=== PATIENT | female | born 1985 | race Caucasian/White ===

== ENCOUNTER 2016-09-23 04:58 | Emergency (ER) | payer MEDICAID ==
[2016-09-23 05:23] VITALS: TEMP 98.3; BMI 45.7
[2016-09-23] MEDS ORDERED: Lidocaine 2%-Epinephrine 1:100,000 20ml vial INF ONE (05:38)
--- NOTE | 2016-09-23 07:13 | EDPRACDOC ---
- General Information Chief Complaint: Wound Stated Complaint: ABSCESS Time Seen by Provider: 09/23/16 05:34 Information Source: Patient Mode of Arrival:: Car Home Medications: Home Medications TOPIRAMATE (Anticonvulsant) [Topamax] 50 mg PO BID 09/06/13 Loratadine [Claritin] 10 mg PO DAILY 01/24/15 Metformin HCl 1,000 mg PO BID 09/21/15 Albuterol Sulfate [Proair Hfa] 2 puff INH Q4H PRN 09/29/15 Montelukast Sodium [Singulair] 10 mg PO DAILY 09/29/15 Omeprazole 40 mg PO DAILY 05/21/16 Albuterol Sulfate Nebs [Proventil, Ventolin] 3 ml INH QID #1 box 06/05/16 Benzonatate [Tessalon Perle] 100 mg PO TID #21 capsule 06/05/16 Ibuprofen Tablet [Motrin] 800 mg PO QID #30 tab 06/05/16 Methylprednisolone [Medrol] 4 mg PO DAILY #1 tab.ds.pk 06/05/16 Clindamycin HCl 300 mg PO TID #12 capsule 09/23/16 Oxycodone Immediate Release [Oxycodone Immediate Release (OxyIR)] 5 - 15 mg PO Q4H PRN #30 tab 09/23/16 Allergies/Adverse Reactions: Allergies Allergy/AdvReac Type Severity Reaction Status Date / Time peanut Allergy Severe Angioedema* Verified 09/23/16 05:23 ketorolac tromethamine Allergy Intermediate Itching Verified 09/23/16 05:23 [From Toradol] tramadol Allergy Intermediate Nausea/Vomi Verified 09/23/16 05:23 ting PECANS Allergy Anaphylaxis Uncoded 06/05/16 13:13 * walnuts Allergy Angioedema* Uncoded 06/05/16 13:13 - History of Present Illness Onset: 1 week Location: Reports: Back Last Tetanus: Yes Relevent History Of: Reports: None Prior Abscess: Reports: None Pain: Reports: Moderate Quality: Reports: Painful, Red. Denies: Draining Associated Signs & Symptoms: Denies: Chills, Fever, Proximal Streaking ED Past Medical History - History Reviewed Yes Nurses notes reviewed and agree except as marked - Patient Medical History Neurological History: Reports: Migraine Cardiac History: Denies: Hypertension Respiratory History: Reports: Asthma, Chronic Bronchitis GI/ History: Reports: Urinary Tract Infection, Gastroesophageal Reflux Musculoskeletal History: Psychological History: Denies: Depression Systemic History: Reports: Diabetes. Denies: Cancer Surgical History: Reports: Cholecystectomy, Other (LIPOMA REMOVAL). Denies: Hysterectomy - Family Medical History Reports: Hypertension (mother), Diabetes (mother), Cardiac Disorders (father). Denies: Cancer, Stroke - Social Medical History Smoking Status: Never smoker EDM Review of Systems - Review of Systems ROS Negative Except as Marked: Yes All systems reviewed and were negative except as marked - Physical Exam Constitutional: No apparent distress, Alert, Distress (UNCOMFORTABLE WITH PAIN) Last recorded Vital Signs: Last Vital Signs Temp 98.3 F 09/23/16 05:17 Pulse 118 09/23/16 05:17 Resp 18 09/23/16 05:17 BP 159/85 09/23/16 05:17 Pulse Ox 100 09/23/16 05:17 Oxygen Pulse Oxygen Saturation 100 O2 Device Room Air Oxygen Flow Rate Fraction of Inspired Oxygen ( FIO2) - HEENT Head: Normal - Musculoskeletal Back: Other (RIGHT THORACIC PARASPINAL AREA DEMONSTRATES A 5 X 7 CM AREA WARRANTED INDURATION ERYTHEMA FIRM TENDER PALPATION NO CREPITANCE.. ULTRASOUND AREA OF THIS ABSCESS DEMONSTRATES A LARGE FLUID-FILLED CAVITY WITH SOME DEBRIS INSIDE) ED Procedures - Incision and Drainage Informed of risks, benefits and alternatives described.: Yes Informed Consent Signed: Verbal Indication: Painful Mass Anesthetic: Lidocaine, with Epi Prep: Betadine Blade Size: 11 Incised Site drained: Reports: Pus, Other (SEBUM) Incised site was: Not irrigated, Not Packed with Iodoform - Departure Disposition: Home Condition: Stable Final Diagnosis: Infected sebaceous cyst of skin Instructions: Incision and Drainage of Abscess Education/Counseling Given To: Patient Education/Counseling Given Regarding: Diagnosis, Treatment, Prognosis Prescriptions: Clindamycin HCl 300 mg PO TID #12 capsule Oxycodone Immediate Release [Oxycodone Immediate Release (OxyIR)] 5 - 15 mg PO Q4H PRN #30 tab PRN Reason: Pain
[2016-09-23 08:09] VITALS: BP 164/107; PULSE 95
== END 2016-09-23 08:02 | disposition home or self-care (01) ==
LOC: ED 04:58
DX: L72.3 Sebaceous cyst (principal)
CPT/HCPCS: 10060; 99283; J3490

== ENCOUNTER 2016-10-03 02:49 | Emergency (ER) | payer MEDICAID ==
[2016-10-03 02:56] VITALS: BP 187/92; PULSE 106; TEMP 98.3; BMI 45.9
[2016-10-03] MEDS ORDERED: OXYCODONE HCL 5 MG TABLET PO STA (04:36)
--- NOTE | 2016-10-03 04:38 | EDPRACDOC ---
- General Information Chief Complaint: Wound Stated Complaint: ABCESS ON BACK Time Seen by Provider: 10/03/16 04:26 Information Source: Patient Mode Of Arrival: Car Home Medications: Home Medications TOPIRAMATE (Anticonvulsant) [Topamax] 50 mg PO BID 09/06/13 Loratadine [Claritin] 10 mg PO DAILY 01/24/15 Metformin HCl 1,000 mg PO BID 09/21/15 Albuterol Sulfate [Proair Hfa] 2 puff INH Q4H PRN 09/29/15 Montelukast Sodium [Singulair] 10 mg PO DAILY 09/29/15 Omeprazole 40 mg PO DAILY 05/21/16 Clindamycin HCl 300 mg PO TID #12 capsule 09/23/16 Oxycodone Immediate Release [Oxycodone Immediate Release (OxyIR)] 5 - 15 mg PO Q4H PRN #30 tab 09/23/16 Oxycodone HCl [Roxicodone] 5 mg PO Q4-6H PRN #15 tablet 10/03/16 Allergies/Adverse Reactions: Allergies Allergy/AdvReac Type Severity Reaction Status Date / Time peanut Allergy Severe Angioedema* Verified 10/03/16 02:56 ketorolac tromethamine Allergy Intermediate Itching Verified 10/03/16 02:56 [From Toradol] tramadol Allergy Intermediate Nausea/Vomi Verified 10/03/16 02:56 ting PECANS Allergy Anaphylaxis Uncoded 10/03/16 02:56 * walnuts Allergy Angioedema* Uncoded 10/03/16 02:56 - History of Present Illness Onset: 2 WEEKS Wound Location: RIGHT UPPER BACK Previously Treated In: [place] [facility] Current Wound Treatment: Other (I&D) Associated Signs and Symptoms: Pain, Local Redness. negative: Fever, Red Streaking Other History: PT PRESENTS AFTER I&D OF ABSCESS TO RIGHT UPPER BACK EARLIER IN THE WEEK. STILL WITH PAIN. OUT OF PAIN MEDS AND ANTIBIOTICS. ED Past Medical History - History Reviewed Yes Nurses notes reviewed and agree except as marked - Patient Medical History Neurological History: Reports: Migraine Cardiac History: Denies: Hypertension Respiratory History: Reports: Asthma, Chronic Bronchitis GI/ History: Reports: Urinary Tract Infection, Gastroesophageal Reflux Musculoskeletal History: Psychological History: Denies: Depression Systemic History: Reports: Diabetes. Denies: Cancer Surgical History: Reports: Cholecystectomy, Other (LIPOMA REMOVAL). Denies: Hysterectomy - Family Medical History Reports: Hypertension (mother), Diabetes (mother), Cardiac Disorders (father). Denies: Cancer, Stroke - Social Medical History Smoking Status: Never smoker Lives In: Home EDM Review of Systems - Review of Systems ROS Negative Except as Marked: Yes All systems reviewed and were negative except as marked Constitutional: negative: Fever Integumentary: Wound (RIGHT UPPER BACK SWELLING AND PAINFUL MASS.) - Physical Exam Constitutional: Alert Oriented to: Time, Person, Place Last recorded Vital Signs: Last Vital Signs Temp 98.3 F 10/03/16 02:52 Pulse 106 10/03/16 02:52 Resp 20 10/03/16 02:52 BP 187/92 H 10/03/16 02:52 Pulse Ox 100 10/03/16 02:52 Oxygen Pulse Oxygen Saturation 100 O2 Device Room Air Oxygen Flow Rate Fraction of Inspired Oxygen ( FIO2) - HEENT Head: negative: Deformity, Laceration Nose: negative: Discharge Neck: negative: Limited ROM - Integumentary Skin: Warm, Dry - Neurologic Memory Impaired: Normal Motor Function: Normal Mood Description: Anxious Thought: Coherent Perception: Normal ED Wound Check Exam - Wound Detail Wound Location: RIGHT UPPER MEDIAL BACK Healing: Well, Tenderness (TO IMMEDIATE AREA). negative: Fluctuant Discharge: None Erythema: Localized to Wound Edges Decision Time to Discharge: 04:39 - Departure Yes I personally saw and evaluated the patient. Disposition: Home Condition: Stable Final Diagnosis: HEALING ABSCESS Instructions: MRSA (Methicillin Resistant Staphylococcus Aureus) (ED) Education/Counseling Given To: Patient Education/Counseling Given Regarding: Diagnosis, Treatment, Prognosis, Follow Up Referrals: None,No Provider [Primary Care Provider] - One Week Prescriptions: Oxycodone HCl [Roxicodone] 5 mg PO Q4-6H PRN #15 tablet PRN Reason: Breakthrough Pain
== END 2016-10-03 04:52 | disposition home or self-care (01) ==
LOC: ED 02:49
DX: L02.212 Cutaneous abscess of back [any part, except buttock and flank] (principal)
CPT/HCPCS: 99282; J3490